=== PATIENT | male | born 1940 | race Caucasian/White ===

== ENCOUNTER 2017-01-16 01:31 | Inpatient (IN) | payer MEDICAID, OTHER ==
[2017-01-16] VITALS (13 sets, daily range): BP systolic 118–182; BP diastolic 58–74; PULSE 59–70; RESP 17–61; TEMP 98.2; Ht 160 cm; Wt 80.0 kg
[~2017-01-16] VITALS: Ht 160 cm; Wt 80.0 kg
--- NOTE | 2017-01-16 01:49 | ERA ---
ER Documentation Chief Complaint Date/Time DATE: 01/16/17 TIME: 01:47 Chief Complaint chest pain HPI The patient is a 76-year-old male, presenting to the ER because of substernal chest pain that began about 11 PM, associated with shortness of breath. He denies chest pain with exertion or vomiting or diaphoresis. Has been coughing for 1 week, denies fever, chills, neck pain, palpitation, abdominal pain, vomiting, dysuria, diarrhea, constipation. He does not smoke or drink Past medical history: History of CVA, hypertension, epilepsy, history of abdominal aortic aneurysm, diabetes mellitus, BPH, CAD, dyslipidemia Past surgical history: Aortic valve replacement, CABG 3 years ago, pacemaker ROS All systems reviewed and are negative except as per history of present illness. Medications Home Meds Reported Medications Warfarin Sodium* (Coumadin*) 5 Mg Tablet, 5 MG PO DAILY, TAB TAKE 1 TAB (5mg) PO MON/FRI AND TAKE 1.5mg TABS PO (7.5mg) ALL OTHER DAYS 01/16/17 Tamsulosin Hcl* (Tamsulosin Hcl*) 0.4 Mg Cap.er.24h, 0.4 MG PO DAILY, CAP 01/16/17 Sennosides* (Senna Lax*) 8.6 Mg Tablet, 8.6 TAB PO QHS, TAB 01/16/17 Polyethylene Glycol* (Polyethylene Glycol*) 17 Gm Powd.pack, 17 GM PO QAM for CONSTIPATION, #30 PACKET 01/16/17 Oxybutynin Chloride* (Ditropan*) 5 Mg Tab, 5 MG PO TID, TAB 01/16/17 Metformin Hcl* (Metformin Hcl*) 500 Mg Tablet, 500 MG PO WITH BREAKFAST DINNE, # 30 TAB 01/16/17 Glucosamine Hcl (Glucosamine Hcl) 1,500 Mg Tablet, 1500 MG PO TID, TAB 01/16/17 Gabapentin* (Gabapentin*) 300 Mg Capsule, 300 MG PO TID, #90 CAP 01/16/17 Finasteride* (Finasteride*) 5 Mg Tablet, 5 MG PO DAILY, TAB 01/16/17 Docusate Sodium* (Doc-Q-Lace*) 100 Mg Capsule, 100 MG PO BID Y for CONSTIPATION , CAP 01/16/17 Cilostazol* (Cilostazol*) 100 Mg Tablet, 100 MG PO BID, TAB 01/16/17 Atorvastatin* (Atorvastatin*) 80 Mg Tablet, 80 MG PO QHS, #30 TAB 01/16/17 Aspirin* (Aspirin* Chew) 81 Mg Tab.chew, 81 MG PO DAILY, TAB.CHEW 01/16/17 Gentamicin Sulfate* (Gentafair* Ophth) 0.3% - 5 Ml Drops, 1 DROP BOTH EYES Q4, EA 01/16/17 Ketorolac Tromethamine (Acular) 5 Ml Drops, 5 ML BOTH EYES, BOTTLE 01/16/17 Allergies Allergies: Coded Allergies: Penicillins (Unverified Allergy, Unknown, 01/16/17) PMhx/Soc Anesthesia Reaction: No Hx Neurological Disorder: Yes (SEIZURE) Hx Respiratory Disorders: No Hx Cardiac Disorders: Yes (HTN, ABDOMINAL AORTIC ANEURYSM) Hx Psychiatric Problems: No Hx Miscellaneous Medical Probl: Yes (Recent stroke, HTN, Abdominal aortic aneurysm) Hx Alcohol Use: No Hx Substance Use: No Hx Tobacco Use: No Physical Exam Vitals Vital Signs Date Time Temp Pulse Resp B/P Pulse Ox O2 Delivery O2 Flow Rate FiO2 01/16/17 03:26 80 18 121/57 98 Room Air 01/16/17 01:45 98.2 68 18 148/75 98 01/16/17 01:34 98.2 80 18 148/75 98 Physical Exam Const: No acute distress. Head: Atraumatic. Eyes: Normal Conjunctiva. ENT: Normal External Ears, Nose and Mouth. Neck: Full range of motion. No meningismus. Resp: Clear to auscultation bilaterally. Cardio: Regular rate and rhythm. Abd: Soft, non distended, normal bowel sounds, non tender. Skin: No petechiae or rashes. Back: No midline or flank tenderness. Ext: No cyanosis, or edema. Neur: Awake and alert. No focal deficit Psych: Normal Mood and Affect. Result Diagram: 01/16/1720401/16/17 020 Results 24 hrs Laboratory Tests Test 01/16/17 02:05 White Blood Count 10.110^3/ul Red Blood Count 3.8110^6/ul Hemoglobin 11.3g/dl Hematocrit 35.9% Mean Corpuscular Volume 94.2fl Mean Corpuscular Hemoglobin 29.7pg Mean Corpuscular Hemoglobin Concent 31.5g/dl Red Cell Distribution Width 14.2% Platelet Count 45901^3/UL Mean Platelet Volume 10.0fl Neutrophils % 65.5% Lymphocytes % 20.4% Monocytes % 8.1% Eosinophils % 5.3% Basophils % 0.3% Nucleated Red Blood Cells % 0.0/100WBC Neutrophils # 6.610^3/ul Lymphocytes # 2.110^3/ul Monocytes # 0.810^3/ul Eosinophils # 0.510^3/ul Basophils # 0.010^3/ul Nucleated Red Blood Cells # 0.010^3/ul Prothrombin Time 28.8Sec Prothrombin Time Ratio 2.3 INR International Normalized Ratio 2.67 Activated Partial Thromboplast Time 44.4Sec Sodium Level 147mmol/L Potassium Level 4.1mmol/L Chloride Level 104mmol/L Carbon Dioxide Level 27mmol/L Anion Gap 20 Blood Urea Nitrogen 23mg/dl Creatinine 0.92mg/dl Glucose Level 99mg/dl Calcium Level 9.7mg/dl Troponin I < 0.012ng/ml B-Type Natriuretic Peptide 149PG/ML Current Medications Medications (Trade) Dose Ordered Sig/Matthew Route PRN Reason Start Time Stop Time Status Last Admin Dose Admin Aspirin (Aspirin) 162 mg ONCE STAT PO 01/16/17 01:59 01/16/17 02:00 DC 01/16/17 02:18 Nitroglycerin (Nitroglycerin 2% Oint) 1 inch ONCE STAT TD 01/16/17 01:59 01/16/17 02:00 DC 01/16/17 02:18 Procedures/MDM EKG: Read by emergency physician Rate/Rhythm: Pacer at 62 beats/min No further attempt to interpret the EKG MEDICAL MAKING DECISION: The patient is a 76-year-old male, with multiple cardiac risk factors, is presenting with acute chest pain that is concerning for ACS. He was treated with aspirin 160 mg p.o. and 1 inch of nitroglycerin ointment to the chest wall with good response The differential diagnoses considered include but are not limited to acute coronary syndrome, acute myocardial infarction, pericarditis, pulmonary embolism , aortic dissection, pneumonia, pleural effusion, pneumothorax, GERD, chest wall pain. Departure Diagnosis: Primary Impression: Chest pain Additional Impression: Anemia Condition: Stable Comments I discussed the findings with the patient. I discussed the patient with the on- call hospitalist Dr. Mario at 3:30 AM who was made aware of the lab, the treatment, the patient condition. The patient is admitted to telemetry BASILIA PAYNE MD Jan 16, 2017 01:49
[2017-01-16] MEDS ORDERED: ASPIRIN 81 MG TAB PO STA (01:59)
[2017-01-16] MEDS ORDERED: NITROGLYCERIN 2% 1 GM OINT PKT TD STA (01:59)
[2017-01-16] MEDS ORDERED: POLY17PO3 PO (02:46)
[2017-01-16] MEDS ORDERED: KTR.5OP5 BOTH EYES (02:46)
[2017-01-16] MEDS ORDERED: ASPI81TA3 PO (02:46)
[2017-01-16] MEDS ORDERED: WARF5TAB72 PO (02:46)
[2017-01-16] MEDS ORDERED: METF500T4 PO (02:46)
[2017-01-16] MEDS ORDERED: GLUC15002 PO (02:46)
[2017-01-16] MEDS ORDERED: GABA300C16 PO (02:46)
[2017-01-16] MEDS ORDERED: TAMS0.4C2 PO (02:46)
[2017-01-16] MEDS ORDERED: DOCU100C26 PO (02:46)
[2017-01-16] MEDS ORDERED: ATOR80TA75 PO (02:46)
[2017-01-16] MEDS ORDERED: CILO100T PO (02:46)
[2017-01-16] MEDS ORDERED: FINA5TAB4 PO (02:46)
[2017-01-16] MEDS ORDERED: SENN-53 PO (02:46)
[2017-01-16] MEDS ORDERED: GENT5DRO28 BOTH EYES (02:46)
[2017-01-16] MEDS ORDERED: OXYB5TAB7 PO (02:46)
[2017-01-16 02:56] LABS: BASOPHILS % 0.3 % (0.0-2.0); EOSINOPHILS # 0.5 10^3/ul (0.0-0.5); EOSINOPHILS % 5.3 % (0.0-7.0); HEMATOCRIT 35.9 % (42.0-52.0); HEMOGLOBIN 11.3 g/dl (14.0-18.0); LYMPHOCYTES # 2.1 10^3/ul (0.8-2.9); LYMPHOCYTES % 20.4 % (15.0-51.0); MEAN CORPUSCULAR HEMOGLOBIN 29.7 pg (29.0-33.0); MEAN CORPUSCULAR HGB CONC 31.5 g/dl (32.0-37.0); MEAN CORPUSCULAR VOLUME 94.2 fl (82.0-101.0); MONOCYTE # 0.8 10^3/ul (0.3-0.9); MONOCYTES % 8.1 % (0.0-11.0); NEUTROPHIL # 6.6 10^3/ul (1.6-7.5); NEUTROPHILS % 65.5 % (39.0-77.0); PLATELET COUNT 235 10^3/UL (140-415); RED BLOOD COUNT 3.81 10^6/ul (4.70-6.10); RED CELL DISTRIBUTION WIDTH 14.2 % (11.5-14.5); WHITE BLOOD COUNT 10.1 10^3/ul (4.8-10.8)
[2017-01-16 03:06] LABS: INR 2.67; PROTIME 28.8 Sec (12.2-14.2); PT RATIO 2.3
[2017-01-16 03:07] LABS: PARTIAL THROMBOPLASTIN TIME 44.4 Sec (25.0-35.0)
[2017-01-16 03:11] LABS: ANION GAP 20 (8-16); BLOOD UREA NITROGEN 23 mg/dl (7-20); CALCIUM 9.7 mg/dl (8.4-10.2); CARBON DIOXIDE 27 mmol/L (21-31); CHLORIDE 104 mmol/L (97-110); CREATININE 0.92 mg/dl (0.61-1.24); GLUCOSE 99 mg/dl (70-220); POTASSIUM 4.1 mmol/L (3.5-5.1); SODIUM 147 mmol/L (135-144)
[2017-01-16 03:21] LABS: B-TYPE NATRIURETIC PEPTIDE 149 PG/ML (0-450)
[2017-01-16 03:26] LABS: TROPONIN-I < 0.012 ng/ml (0.00-0.12)
--- NOTE | 2017-01-16 03:39 | RADRPT ---
PROCEDURE: XR Chest. CLINICAL INDICATION: Chest pain TECHNIQUE: Single frontal view of the chest was obtained COMPARISON: 10/08/2015 FINDINGS: The heart is not enlarged. Calcification in the aortic arch. Prosthetic cardiac valve. Sternal wi res. Dual chamber cardiac pacemaker again seen. Small epicardial pacing lead again apparent as wel l. There is minimal prominence of the lung interstitium likely minimal chronic changes. Partial atelect asis at lung bases again apparent. ECG leads projected over the chest. There is no pleural effusion or pneumothorax. IMPRESSION: Partial atelectasis at lung bases again apparent. RPTAT: HJES .Henri Morrell MD, MD Date Time Electronically viewed and signed by .Henri Morrell MD, MD on 01/16/2017 03:38 .S/
[2017-01-16] MEDS ORDERED: DEXTROSE 50% 50 ML SYRINGE IV PRN ×2 (06:00)
[2017-01-16] MEDS ORDERED: GLUCAGON 1 MG INJ IM PRN (06:00)
[2017-01-16] MEDS ORDERED: GLUCOSE GEL 15 GRAM TUBE PO PRN ×2 (06:00)
[2017-01-16] MEDS ORDERED: GLUCOSE GEL 15 GRAM TUBE BUCCAL PRN (06:00)
[2017-01-16] MEDS ORDERED: morphine 4 MG/ML VIAL IV PRN (06:00)
[2017-01-16] MEDS: INSULIN ASPART [NOVOLOG] 3 ML PEN SC SCH ×4 (08:00→21:00)
[2017-01-16] MEDS: INSULIN GLARGINE [LANtus] 3 ML PEN SC SCH (08:41)
--- NOTE | 2017-01-16 09:38 | HP ---
Date/Time of Note Date/Time of Note DATE: 01/16/17 TIME: 09:30 Assessment/Plan Lines/Catheters IV [facility] Saline Lock Urinary Cath still in place: No Assessment/Plan Assessment/Plan 1. Chest pain, rule out ACS -EKG with no ST-T wave abnormalities. First troponin is negative -We will obtain a 2D echo and send additional troponin -We will place a cardiology consult given cardiac history 2. History of CAD with CABG -Continue cardiac medications 3. History of aortic valve replacement -Continue anticoagulation 4. History of CVA -Continue antiplatelet and statin 5. History of BPH - Continue home meds 6. History of seizure -Continue home meds -Ativan as needed 7. Diabetes -Continue insulin HPI/ROS Admit Date/Time Admit Date/Time Jan 16, 2017 at 03:38 Hx of Present Illness The patient is a 75-year-old male with a history of a CVA, cardiac valve replacement, pacemaker, hypertension, seizure and abdominal aortic aneurysm. Patient presented to the ER complaining of chest pain. He is currently somehow sleepy, but arousable, but is not providing adequate history. His who is at the bedside provided most of the story. She said he has been complaining of chest pain of and on but since yesterday he had a chest pain that lasted 3 hours. He pointed in the mid chest when describing chest pain and it is nonradiating. Denied shortness of breath, nausea, vomiting, diaphoresis. PMH/Family/Social Social History Smoking Status: Former smoker Exam/Review of Systems Vital Signs Vitals Vital Signs Date Time Temp Pulse Resp B/P Pulse Ox O2 Delivery O2 Flow Rate FiO2 01/16/17 08:00 59 01/16/17 07:29 97.4 61 121/58 98 01/16/17 04:50 Room Air Exam Constitutional: other (Initially sleepy but arousable. Appears weak.) Head: atraumatic, normocephalic Eyes: EOMI, PERRL Respiratory: clear to auscultation, normal air movement Cardiovascular: nl pulses, regular rate and rhythm Gastrointestinal: non-tender, soft Extremities: normal pulses Labs Result Diagram: 01/16/17 02001/16/17 020 Medications Medications Current Medications Diagnostic Test (Pha) (Accu-Chek) 1 02 XX ; Start 01/17/17 at 02:00 Morphine Sulfate (morphine) 2 mg Q4H PRN IV PAIN; Start 01/16/17 at 06:00 Insulin Glargine (Lantus) 10 unit DAILY@08 SC Last administered on 01/16/17t 08: 41; Admin Dose 10 UNIT; Start 01/16/17 at 08:00 Miscellaneous Information 1 ea NOTE XX ; Start 01/16/17 at 06:00 Glucose (Glutose) 15 gm Q15M PRN PO DECREASED GLUCOSE; Start 01/16/17 at 06:00 Glucose (Glutose) 22.5 gm Q15M PRN PO DECREASED GLUCOSE; Start 01/16/17 at 06:00 Dextrose (D50w Syringe) 25 ml Q15M PRN IV DECREASED GLUCOSE; Start 01/16/17 at 06:00 Dextrose (D50w Syringe) 50 ml Q15M PRN IV DECREASED GLUCOSE; Start 01/16/17 at 06:00 Glucagon (Glucagen) 1 mg Q15M PRN IM DECREASED GLUCOSE; Start 01/16/17 at 06:00 Glucose (Glutose) 15 gm Q15M PRN BUCCAL DECREASED GLUCOSE; Start 01/16/17 at 06: 00 SHAHEEN MARTINEZ MD Jan 16, 2017 09:38
[2017-01-16] MEDS ORDERED: DOCUSATE SODIUM 100 MG CAP PO PRN (10:00)
[2017-01-16] MEDS ORDERED: morphine 2 MG INJ IV PRN (11:00)
[2017-01-16] MEDS: POLYETHYLENE GLYCOL 17 GM PACKET PO SCH (11:36)
[2017-01-16] MEDS: CILOSTAZOL 100 MG TAB PO SCH ×2 (11:36→20:30)
[2017-01-16] MEDS: FINASTERIDE 5 MG TAB PO SCH (11:36)
[2017-01-16 11:38] LABS: CREATINE KINASE 55 IU/L (23-200)
[2017-01-16 11:52] LABS: CK-MB 1.52 ng/ml (0.0-2.4); TROPONIN-I < 0.012 ng/ml (0.00-0.12)
[2017-01-16] MEDS: GENTAMICIN 0.3% 5 ML OPH BOTH EYES SCH ×3 (12:39→20:31)
[2017-01-16] MEDS: OXYBUTYNIN 5 MG TAB PO SCH ×2 (12:40→20:30)
[2017-01-16] MEDS: GABAPENTIN 300 MG CAP PO SCH ×2 (12:40→20:30)
--- NOTE | 2017-01-16 13:47 | PN ---
Date/Time of Note Date/Time of Note DATE: 01/16/17 TIME: 13:42 Assessment/Plan VTE Prophylaxis VTE Prophylaxis Intervention: heparin Lines/Catheters IV C[facility]ter Type (from [facility]): Saline Lock Urinary Cath still in place: No Assessment/Plan Problems: (1) Peripheral vascular disease Status: Chronic Comment: He is status post AAA. He is normally receives his care at [facility]. His states he has seen cardiology there but he denies it. Regardless it does not appear that he has any activity of his peripheral vascular disease at this moment (2) Diabetes mellitus type 2 in obese Status: Chronic Comment: Noted he is on treatment will follow this along carefully (3) Hypertension Status: Chronic Comment: He is on medication. I am going to add in metoprolol due to the chest pain syndrome. Qualifiers: Hypertension type: essential hypertension Qualified Code: I10 - Essential hypertension (4) Dyslipidemia Status: Chronic Comment: He is on statin therapy (5) BPH (benign prostatic hyperplasia) Status: Chronic Comment: He is on medication for this and presently stable Qualifiers: Prostatic enlargement morphology: unspecified morphology Lower urinary tract symptom presence: presence of symptoms unspecified Qualified Code: N40.0 - Benign prostatic hyperplasia, presence of lower urinary tract symptoms unspecified, unspecified morphology (6) Chest pain Status: Acute Comment: He has chest pain and it is difficult to get an exact history from him. However given his multiple risk factors going to go ahead and treat this as if it is real. He is artery had an echocardiogram ordered and I have left message specifically to the construction area manager exchange Dr. LAMB to see the patient in consultation Qualifiers: Chest pain type: precordial pain Qualified Code: R07.2 - Precordial pain Subjective 24 Hr Interval Summary Free Text/Dictation Called by nursing staff secondary to patient having chest pain. Relieved with morphine. Constitutional: no complaints Respiratory: shortness of breath (When he had chest pain he did have some shortness of breath) Cardiovascular: chest pain (Resolved at this time) Gastrointestinal: no complaints Genitourinary: no complaints Exam/Review of Systems Vital Signs Vitals Vital Signs Date Time Temp Pulse Resp B/P Pulse Ox O2 Delivery O2 Flow Rate FiO2 01/16/17 12:35 60 20 132/61 94 Room Air 01/16/17 11:40 97.9 Exam Hebrew speaking male who understands Korean Constitutional: alert, oriented Neck: non-tender, supple Respiratory: clear to auscultation, normal air movement Cardiovascular: nl pulses, regular rate and rhythm Results Result Diagram: 01/16/17 0205 01/16/17 0205 Results 24 hrs Laboratory Tests Test 01/16/17 02:05 01/16/17 08:37 01/16/17 10:43 01/16/17 12:41 White Blood Count 10.1 # Red Blood Count 3.81 L Hemoglobin 11.3 L Hematocrit 35.9 L Mean Corpuscular Volume 94.2 Mean Corpuscular Hemoglobin 29.7 Mean Corpuscular Hemoglobin Concent 31.5 L Red Cell Distribution Width 14.2 Platelet Count 235 Mean Platelet Volume 10.0 # Neutrophils % 65.5 Lymphocytes % 20.4 Monocytes % 8.1 Eosinophils % 5.3 Basophils % 0.3 Nucleated Red Blood Cells % 0.0 Neutrophils # 6.6 Lymphocytes # 2.1 Monocytes # 0.8 Eosinophils # 0.5 Basophils # 0.0 Nucleated Red Blood Cells # 0.0 Prothrombin Time 28.8 H Prothrombin Time Ratio 2.3 INR International Normalized Ratio 2.67 Activated Partial Thromboplast Time 44.4 H Sodium Level 147 H Potassium Level 4.1 Chloride Level 104 Carbon Dioxide Level 27 Anion Gap 20 H Blood Urea Nitrogen 23 H Creatinine 0.92 Glucose Level 99 Calcium Level 9.7 Troponin I < 0.012 < 0.012 B-Type Natriuretic Peptide 149 Bedside Glucose 106 95 Creatine Kinase 55 Creatine Kinase Index 2.8 Creatinine Kinase MB (Mass) 1.52 Medications Medications Current Medications Diagnostic Test (Pha) (Accu-Chek) 1 ea 02 XX ; Start 01/17/17 at 02:00 Insulin Glargine (Lantus) 10 unit DAILY@08 SC Last administered on 01/16/17t 08: 41; Admin Dose 10 UNIT; Start 01/16/17 at 08:00 Miscellaneous Information 1 ea NOTE XX ; Start 01/16/17 at 06:00 Glucose (Glutose) 15 gm Q15M PRN PO DECREASED GLUCOSE; Start 01/16/17 at 06:00 Glucose (Glutose) 22.5 gm Q15M PRN PO DECREASED GLUCOSE; Start 01/16/17 at 06:00 Dextrose (D50w Syringe) 25 ml Q15M PRN IV DECREASED GLUCOSE; Start 01/16/17 at 06:00 Dextrose (D50w Syringe) 50 ml Q15M PRN IV DECREASED GLUCOSE; Start 01/16/17 at 06:00 Glucagon (Glucagen) 1 mg Q15M PRN IM DECREASED GLUCOSE; Start 01/16/17 at 06:00 Glucose (Glutose) 15 gm Q15M PRN BUCCAL DECREASED GLUCOSE; Start 01/16/17 at 06: 00 Aspirin (Aspirin) 81 mg DAILY PO ; Start 01/17/17 at 09:00 Atorvastatin Calcium (Lipitor) 80 mg QHS PO ; Start 01/16/17 at 21:00 Cilostazol (Pletal) 100 mg BID PO Last administered on 01/16/17 11:36; Admin Dose 100 MG; Start 01/16/17 at 11:00 Docusate Sodium (Colace) 100 mg BID PRN PO CONSTIPATION; Start 01/16/17 at 10:00 Finasteride (Proscar) 5 mg DAILY PO Last administered on 01/16/17 11:36; Admin Dose 5 MG; Start 01/16/17 at 11:00 Gabapentin (Neurontin) 300 mg TID PO Last administered on 01/16/17 12:40; Admin Dose 300 MG; Start 01/16/17 at 13:00 Gentamicin Sulfate (Gentamicin 0.3% Oph Drop) 1 drop Q4 BOTH EYES Last administered on 01/16/17 12:39; Admin Dose 1 DROP; Start 01/16/17 at 13:00 Oxybutynin Chloride (Ditropan) 5 mg TID PO ; Start 01/16/17 at 13:00 Polyethylene Glycol (Miralax) 17 gm QAM PO Last administered on 01/16/17 11:36 ; Admin Dose 17 GM; Start 01/16/17 at 10:00 Senna (Senokot) 8.6 tab QHS PO ; Start 01/16/17 at 21:00 Tamsulosin HCl (Flomax) 0.4 mg DAILY@21 PO ; Start 01/16/17 at 21:00 Warfarin Sodium (Coumadin) 5 mg DAILY@17 PO ; Start 01/16/17 at 17:00 Morphine Sulfate (morphine) 2 mg Q4H PRN IV PAIN Last administered on 01/16/17 12:36; Admin Dose 2 MG; Start 01/16/17 at 11:00 ANTOINE TALAVERA MD Jan 16, 2017 13:47
[2017-01-16] MEDS: METOPROLOL (XL) 25 MG TAB PO SCH ×2 (14:16→21:00)
[2017-01-16 14:51] LABS: CREATINE KINASE 63 IU/L (23-200)
[2017-01-16 15:16] LABS: TROPONIN-I < 0.012 ng/ml (0.00-0.12)
[2017-01-16] MEDS ORDERED: WARFARIN 5 MG TAB PO SCH (17:00)
--- NOTE | 2017-01-16 20:01 | RADRPT ---
Echocardiogram Report Patient Name: MONSERRAT JORDAN Gender: Male Date: 1940 Study Date: 16-Jan-2017 [employer]: JIGNA Location: I Ref. Physician: SHAHEEN MARTINEZ Quality: Technically Difficult Study Procedures: Transthoracic echocardiogram with 2D, M-Mode, and Doppler examination. Indications: Chest Pain. 2D/M Mode Doppler Measurement Value Normal Ranges Measurement Value Normal Ranges AoR Diam MM 2.8 cm KAREN Vmax 1.2 cm2 LVIDd 2D 3.7 3.5 - 5.6 cm KAREN VTI 1.2 cm2 LVIDs 2D 2.7 2.1 - 4.1 cm AV Mean Tashi 1.4 m/sec LVPWd 2D 1.2 0.6 - 1.1 cm AV Mean PG 9.3 mmHg IVSd 2D 1.2 0.6 - 1.1 cm AV Peak Tashi 2.2 m/sec EDV 2D 58.2 cm3 AV Peak PG 18.9 mmHg ESV 2D 18.9 cm3 AV VTI 44.8 cm LA Dimen 2D 3.9 2.3 - 4.0 cm LVOT Mean Tashi 0.6 m/sec LVOT Diam 2.0 cm LVOT Mean PG 1.4 mmHg LVOT Peak Tashi 0.8 m/sec LVOT Peak PG 2.6 mmHg LVOT VTI 21.3 cm MV E Peak Tashi 0.9 m/sec MV A Peak Tashi 1.2 m/sec MV E/A 0.8 MV Decel Time 235 msec MV Decel [place] 4 MV E/A 0.8 TR Peak Tashi 2.6 m/sec TR Peak PG 27.8 mmHg PV Peak Tashi 1.0 m/sec PV Peak PG 4.0 mmHg RVSP 30.8 mmHg Findings Left Ventricle: Overall, normal left ventricular systolic function. Not all segments visualized. Normal left ventricular cavity size. Mild concentric left ventricular hypertrophy. Ejection fraction is visually estimated at 55 %. Tissue Doppler/Mitral Doppler indices are consistent with impaired relaxation (Stage I diastolic dysfunction). E/E`=9. Right Ventricle: Normal right ventricular size. Left Atrium: The left atrium is normal in size. Right Atrium: The right atrium is normal in size. Atrial Septum: Normal atrial septum. Mitral Valve: Mild mitral leaflet calcification. Mild mitral annular calcification. Mild mitral valve regurgitation. Aortic Valve: Aortic Valve Bio Prosthesis. Gradients normal for valve type and size. Aortic valve Max velocity 2.20 m/sec. Max PG 19.00 mmHg. Mean PG 9.00 mmHg. Aortic valve area 1.50 cm2. Trace aortic valve regurgitation. Tricuspid Valve: Normal appearance of the tricuspid valve. Estimated peak PA systolic pressure 31 mmHg. There is mild tricuspid regurgitation. Pulmonic Valve: Normal pulmonic valve appearance. There is trace pulmonic regurgitation. Pericardium: Normal pericardium with no significant pericardial effusion. Aorta: Normal aortic root. IVC: The IVC is not well visualized. Pulmonary Artery: Normal pulmonary artery size. Conclusions 1.The left ventricle is normal in size and systolic function. 2.Estimated left ventricular ejection fraction of 55%. 3.Mild concentric left ventricular hypertrophy. Grade 1 diastolic dysfunction. 4.Aortic valve bioprosthesis with normal function. Electronically Signed By: Aubrey Lopez 16-Jan-2017 20:00:18 -0700 Patient Name: MONSERRAT JORDAN Study Date: 16-Jan-2017 [id number]
[2017-01-16] MEDS ORDERED: TAMSULOSIN (SR) 0.4 MG CAP PO SCH (21:00)
[2017-01-16] MEDS ORDERED: SENNA TAB PO SCH (21:00)
[2017-01-16] MEDS ORDERED: ATORVASTATIN 80 MG TAB PO SCH (21:00)
--- NOTE | 2017-01-16 21:07 | CONS ---
Date/Time of Note Date/Time of Note DATE: 01/16/17 TIME: 20:52 Assessment/Plan Assessment/Plan Chief Complaint/Hosp Course Assessment: Chest pain - ruled out for myocardial infarction Coronary artery disease, status post CABG (2009, ) Bioprosthetic aortic valve replacement (2013) - normal function on echocardiogram Dual-chamber permanent pacemaker (Medtronic) - appears to have normal function on EKG and telemetry Hypertension Dyslipidemia Diabetes mellitus Reported abdominal aortic aneurysm - details unknown History of stroke History of seizure Recommendations: -echocardiogram showed normal LVEF 55%, mild LVH with grade 1 diastolic dysfunction, aortic valve bioprosthesis with normal function -reported normal cardiac stress test at [facility] six months ago , will not repeat at this time -no additional cardiac work up at this time, outpatient cardiology follow up at [facility] -continue aspirin 81mg daily -continue atorvastatin 80mg daily -on warfarin for unclear indication, defer to outpatient providers Problems: Consultation Date/Type/Reason Admit Date/Time Jan 16, 2017 at 03:38 Type of Consultation: Cardiology Reason for Consultation chest pain Hx of Present Illness The patient is a 76 year-old male who presented to the emergency department with chest pain. He is unable to characterize the pain, but reports onset at approximately 11pm while he was in bed. The pain lasted all night into the morning, but has now resolved. His EKG showed AV sequential pacing. His troponins have been negative x 3. He has a history of CABG (2009 in [place]) and bioprosthetic AVR (2013). His chief growth officer and other providers are at [facility], and his reports that he had a normal cardiac stress test there six months ago. 14 point review of systems negative other than per HPI. Past Medical History Coronary artery disease, status post CABG (2009, [place]) Bioprosthetic aortic valve replacement (2013) Dual-chamber permanent pacemaker (Medtronic) Hypertension Dyslipidemia Diabetes mellitus Abdominal aortic aneurysm History of stroke History of seizure Past Surgical History Past Surgical Hx: coronary bypass surgery, other (aortic valve replacement) Family History Significant Family History: no pertinent family hx Social History Smoking Status: Former smoker Exam/Review of Systems Vital Signs Vitals Vital Signs Date Time Temp Pulse Resp B/P Pulse Ox O2 Delivery O2 Flow Rate FiO2 01/16/17 20:21 62 01/16/17 16:27 97.9 17 131/62 94 01/16/17 12:35 Room Air Exam Constitutional: alert, well developed Psych: nl mood/affect, no complaints Head: atraumatic, normocephalic Eyes: nl conjunctiva, nl lids ENMT: nl external ears & nose, nl nasal mucosa & septum Neck: non-tender, supple, No jvd Respiratory: clear to auscultation, normal air movement Cardiovascular: regular rate and rhythm, systolic murmur Gastrointestinal: non-tender, soft Musculoskeletal: nl extremities to inspection Extremities: No clubbing, No cyanosis, No edema Neurological: nl mental status, nl speech Skin: nl turgor Results Result Diagram: 01/16/17 02001/16/17 020 Results 24 hrs Laboratory Tests Test 01/16/17 02:05 01/16/17 08:37 01/16/17 10:43 01/16/17 12:41 White Blood Count 10.1 # Red Blood Count 3.81 L Hemoglobin 11.3 L Hematocrit 35.9 L Mean Corpuscular Volume 94.2 Mean Corpuscular Hemoglobin 29.7 Mean Corpuscular Hemoglobin Concent 31.5 L Red Cell Distribution Width 14.2 Platelet Count 235 Mean Platelet Volume 10.0 # Neutrophils % 65.5 Lymphocytes % 20.4 Monocytes % 8.1 Eosinophils % 5.3 Basophils % 0.3 Nucleated Red Blood Cells % 0.0 Neutrophils # 6.6 Lymphocytes # 2.1 Monocytes # 0.8 Eosinophils # 0.5 Basophils # 0.0 Nucleated Red Blood Cells # 0.0 Prothrombin Time 28.8 H Prothrombin Time Ratio 2.3 INR International Normalized Ratio 2.67 Activated Partial Thromboplast Time 44.4 H Sodium Level 147 H Potassium Level 4.1 Chloride Level 104 Carbon Dioxide Level 27 Anion Gap 20 H Blood Urea Nitrogen 23 H Creatinine 0.92 Glucose Level 99 Calcium Level 9.7 Troponin I < 0.012 < 0.012 B-Type Natriuretic Peptide 149 Bedside Glucose 106 95 Creatine Kinase 55 Creatine Kinase Index 2.8 Creatinine Kinase MB (Mass) 1.52 Test 01/16/17 13:50 01/16/17 17:14 Creatine Kinase 63 Creatine Kinase Index 2.4 Creatinine Kinase MB (Mass) 1.50 Troponin I < 0.012 Bedside Glucose 98 Medications Medications Current Medications Diagnostic Test (Pha) (Accu-Chek) 1 ea 02 XX ; Start 01/17/17 at 02:00 Insulin Glargine (Lantus) 10 unit DAILY@08 SC Last administered on 01/16/17 08: 41; Admin Dose 10 UNIT; Start 01/16/17 at 08:00 Miscellaneous Information 1 ea NOTE XX ; Start 01/16/17 at 06:00 Glucose (Glutose) 15 gm Q15M PRN PO DECREASED GLUCOSE; Start 01/16/17 at 06:00 Glucose (Glutose) 22.5 gm Q15M PRN PO DECREASED GLUCOSE; Start 01/16/17 at 06:00 Dextrose (D50w Syringe) 25 ml Q15M PRN IV DECREASED GLUCOSE; Start 01/16/17 at 06:00 Dextrose (D50w Syringe) 50 ml Q15M PRN IV DECREASED GLUCOSE; Start 01/16/17 at 06:00 Glucagon (Glucagen) 1 mg Q15M PRN IM DECREASED GLUCOSE; Start 01/16/17 at 06:00 Glucose (Glutose) 15 gm Q15M PRN BUCCAL DECREASED GLUCOSE; Start 01/16/17 at 06: 00 Aspirin (Aspirin) 81 mg DAILY PO ; Start 01/17/17 at 09:00 Atorvastatin Calcium (Lipitor) 80 mg QHS PO Last administered on 01/16/17 20:30 ; Admin Dose 80 MG; Start 01/16/17 at 21:00 Cilostazol (Pletal) 100 mg BID PO Last administered on 01/16/17 20:30; Admin Dose 100 MG; Start 01/16/17 at 11:00 Docusate Sodium (Colace) 100 mg BID PRN PO CONSTIPATION; Start 01/16/17 at 10:00 Finasteride (Proscar) 5 mg DAILY PO Last administered on 01/16/17 11:36; Admin Dose 5 MG; Start 01/16/17 at 11:00 Gabapentin (Neurontin) 300 mg TID PO Last administered on 01/16/17 20:30; Admin Dose 300 MG; Start 01/16/17 at 13:00 Gentamicin Sulfate (Gentamicin 0.3% Oph Drop) 1 drop Q4 BOTH EYES Last administered on 01/16/17 20:31; Admin Dose 1 DROP; Start 01/16/17 at 13:00 Oxybutynin Chloride (Ditropan) 5 mg TID PO Last administered on 01/16/17 20:30 ; Admin Dose 5 MG; Start 01/16/17 at 13:00 Polyethylene Glycol (Miralax) 17 gm QAM PO Last administered on 01/16/17 11:36 ; Admin Dose 17 GM; Start 01/16/17 at 10:00 Senna (Senokot) 8.6 tab QHS PO Last administered on 01/16/17 20:30; Admin Dose 8.6 TAB; Start 01/16/17 at 21:00 Tamsulosin HCl (Flomax) 0.4 mg DAILY@21 PO Last administered on 01/16/17 20:31 ; Admin Dose 0.4 MG; Start 01/16/17 at 21:00 Warfarin Sodium (Coumadin) 5 mg DAILY@17 PO Last administered on 01/16/17 17:16 ; Admin Dose 5 MG; Start 01/16/17 at 17:00 Morphine Sulfate (morphine) 2 mg Q4H PRN IV PAIN Last administered on 01/16/17 12:36; Admin Dose 2 MG; Start 01/16/17 at 11:00 Metoprolol Succinate (Toprol Xl) 25 mg BID PO Last administered on 01/16/17 14: 16; Admin Dose 25 MG; Start 01/16/17 at 14:00 ESTELLA LAMB MD Jan 16, 2017 21:03
[2017-01-17] VITALS (8 sets, daily range): BP systolic 102–148; BP diastolic 55–67; PULSE 59–61; RESP 17–19
[2017-01-17] MEDS: GENTAMICIN 0.3% 5 ML OPH BOTH EYES SCH ×4 (01:00→12:54)
[2017-01-17] MEDS ORDERED: ACCU-CHEK XX SCH ×2 (02:00)
[2017-01-17] MEDS: INSULIN ASPART [NOVOLOG] 3 ML PEN SC SCH ×2 (08:00→12:00)
[2017-01-17] MEDS: INSULIN GLARGINE [LANtus] 3 ML PEN SC SCH (08:17)
[2017-01-17] MEDS: FINASTERIDE 5 MG TAB PO SCH (08:18)
[2017-01-17] MEDS: GABAPENTIN 300 MG CAP PO SCH ×2 (08:18→12:54)
[2017-01-17] MEDS: METOPROLOL (XL) 25 MG TAB PO SCH (08:18)
[2017-01-17] MEDS: POLYETHYLENE GLYCOL 17 GM PACKET PO SCH ×2 (08:18→08:23)
[2017-01-17] MEDS: CILOSTAZOL 100 MG TAB PO SCH (08:18)
[2017-01-17] MEDS: OXYBUTYNIN 5 MG TAB PO SCH ×2 (08:18→12:54)
[2017-01-17] MEDS ORDERED: ASPIRIN 81 MG TAB PO SCH (09:00)
--- NOTE | 2017-01-17 11:22 | CONS ---
Date/Time of Note Date/Time of Note DATE: 01/17/17 TIME: 11:14 Assessment/Plan Assessment/Plan Additional Assessment/Plan Coronary heart disease Status post coronary artery bypass graft Status post valvuloplasty Recent history of chest pain, noncardiac Hypertension Hyperlipidemia Currently does not fit criteria for palliative or hospice care, but I appreciate the opportunity to evaluate him early. Family members were not concerned with my questioning, I did not approach the issue of palliation or hospice care at this time. Consultation Date/Type/Reason Admit Date/Time Jan 16, 2017 at 03:38 Date of Consultation: Jan 17, 2017 Hx of Present Illness This is a 76-year-old gentleman who has a history of coronary heart disease status post coronary artery bypass graft, valvuloplasty who is admitted at this time with chest pain. Please refer to detailed history by Dr. Timothy Mario on presentation. I am asked to evaluate patient's clinical history for consideration of palliation. Patient appears to be very viable on examination is not extremely symptomatic and based on my history obtained from him this was more pleuritic or gastrointestinal type pain rather than angina. This gentleman does not have symptoms out of control, [place] heart classification 2 , I do not have a EF available to evaluate and he is not on maximum treatment for end-stage heart failure. Comorbid medical problems include hyperlipidemia and hypertension his primary care physicians are at all at [facility] scheduled appointment is next week. He is asymptomatic at this time resolution of his chest pain and without dyspnea. Psychological: nl mood/affect, no complaints Past Surgical History Past Surgical Hx: coronary bypass surgery, other (aortic valve replacement) Social History Smoking Status: Former smoker Exam/Review of Systems Vital Signs Vitals Vital Signs Date Time Temp Pulse Resp B/P Pulse Ox O2 Delivery O2 Flow Rate FiO2 01/17/17 08:03 97.8 65 17 102/55 95 01/16/17 12:35 Room Air Intake and Output 01/16/17 01/16/17 01/17/17 15:00 23:00 07:00 Intake Total 400 ml 1200 ml 120 ml Output Total 400 ml 900 ml Balance 0 ml 300 ml 120 ml Exam Constitutional: alert, oriented, well developed Psych: nl mood/affect, no complaints Neurological: DIRECTOR OF STRATEGIC INITIATIVES II-XII intact, nl mental status, nl speech, nl strength Results Result Diagram: 01/16/1720401/16/17 0205 Results 24 hrs Laboratory Tests Test 01/16/17 12:41 01/16/17 13:50 01/16/17 17:14 01/16/17 20:48 Bedside Glucose 95 98 84 Creatine Kinase 63 Creatine Kinase Index 2.4 Creatinine Kinase MB (Mass) 1.50 Troponin I < 0.012 Test 01/17/17 08:00 Bedside Glucose 91 Medications Medications Current Medications Diagnostic Test (Pha) (Accu-Chek) 1 ea 02 XX ; Start 01/17/17 at 02:00 Insulin Glargine (Lantus) 10 unit DAILY@08 SC Last administered on 01/17/17 08: 17; Admin Dose 10 UNIT; Start 01/16/17 at 08:00 Miscellaneous Information 1 ea NOTE XX ; Start 01/16/17 at 06:00 Glucose (Glutose) 15 gm Q15M PRN PO DECREASED GLUCOSE; Start 01/16/17 at 06:00 Glucose (Glutose) 22.5 gm Q15M PRN PO DECREASED GLUCOSE; Start 01/16/17 at 06:00 Dextrose (D50w Syringe) 25 ml Q15M PRN IV DECREASED GLUCOSE; Start 01/16/17 at 06:00 Dextrose (D50w Syringe) 50 ml Q15M PRN IV DECREASED GLUCOSE; Start 01/16/17 at 06:00 Glucagon (Glucagen) 1 mg Q15M PRN IM DECREASED GLUCOSE; Start 01/16/17 at 06:00 Glucose (Glutose) 15 gm Q15M PRN BUCCAL DECREASED GLUCOSE; Start 01/16/17 at 06: 00 Aspirin (Aspirin) 81 mg DAILY PO Last administered on 01/17/17 08:18; Admin Dose 81 MG; Start 01/17/17 at 09:00 Atorvastatin Calcium (Lipitor) 80 mg QHS PO Last administered on 01/16/17 20:30 ; Admin Dose 80 MG; Start 01/16/17 at 21:00 Cilostazol (Pletal) 100 mg BID PO Last administered on 01/17/17 08:18; Admin Dose 100 MG; Start 01/16/17 at 11:00 Docusate Sodium (Colace) 100 mg BID PRN PO CONSTIPATION; Start 01/16/17 at 10:00 Finasteride (Proscar) 5 mg DAILY PO Last administered on 01/17/17 08:18; Admin Dose 5 MG; Start 01/16/17 at 11:00 Gabapentin (Neurontin) 300 mg TID PO Last administered on 01/17/17 08:18; Admin Dose 300 MG; Start 01/16/17 at 13:00 Gentamicin Sulfate (Gentamicin 0.3% Oph Drop) 1 drop Q4 BOTH EYES Last administered on 01/17/17 08:17; Admin Dose 1 DROP; Start 01/16/17 at 13:00 Oxybutynin Chloride (Ditropan) 5 mg TID PO Last administered on 01/17/17 08:18 ; Admin Dose 5 MG; Start 01/16/17 at 13:00 Polyethylene Glycol (Miralax) 17 gm QAM PO Last administered on 01/16/17 11:36 ; Admin Dose 17 GM; Start 01/16/17 at 10:00 Senna (Senokot) 8.6 tab QHS PO Last administered on 01/16/17 20:30; Admin Dose 8.6 TAB; Start 01/16/17 at 21:00 Tamsulosin HCl (Flomax) 0.4 mg DAILY@21 PO Last administered on 01/16/17 20:31 ; Admin Dose 0.4 MG; Start 01/16/17 at 21:00 Warfarin Sodium (Coumadin) 5 mg DAILY@17 PO Last administered on 01/16/17 17:16 ; Admin Dose 5 MG; Start 01/16/17 at 17:00 Morphine Sulfate (morphine) 2 mg Q4H PRN IV PAIN Last administered on 01/16/17 12:36; Admin Dose 2 MG; Start 01/16/17 at 11:00 Metoprolol Succinate (Toprol Xl) 25 mg BID PO Last administered on 01/16/17 14: 16; Admin Dose 25 MG; Start 01/16/17 at 14:00 MARI MCKINNEY Jan 17, 2017 11:21
--- NOTE | 2017-01-17 13:48 | PDOCDIS ---
Discharge Instructions DIAGNOSIS Discharge Diagnosis Chest pain syndrome; status post bioprosthetic aortic valve replacement; dual- chamber pacer; BPH; peripheral vascular disease; diabetes mellitus type 2; hypertension; hyperlipidemia CONDITION Patient Condition: Good HOME CARE INSTRUCTIONS: Special Diet: Carbohydrate controlled ACTIVITY: Activity Restrictions: No Restrictions Do not operate Machinery Do not operate Power Tool FOLLOW UP/APPOINTMENTS Follow-up Plan Cardiology clinic at [facility], in 2 weeks SCHOOL/WORK RELEASE May return to School/Work with: No Restrictions ANTOINE TALAVERA MD Jan 17, 2017 13:48
[2017-01-17] MEDS ORDERED: METO25TA7 PO (13:50)
--- NOTE | 2017-01-17 13:52 | DS ---
Date/Time of Note Date/Time of Note DATE: 01/17/17 TIME: 13:50 Discharge Summary Admission/Discharge Info Admit Date/Time Jan 16, 2017 at 03:38 Discharge Date/Time 01/17/2017 Discharge Diagnosis Chest pain syndrome; status post bioprosthetic aortic valve replacement; dual- chamber pacer; BPH; peripheral vascular disease; diabetes mellitus type 2; hypertension; hyperlipidemia Patient Condition: Good Consults Cardiology. Procedures Rule out [facility] protocol. Echocardiogram. Hx of Present Illness The patient is a 75-year-old male with a history of a CVA, cardiac valve replacement, pacemaker, hypertension, seizure and abdominal aortic aneurysm. Patient presented to the ER complaining of chest pain. He is currently somehow sleepy, but arousable, but is not providing adequate history. His who is at the bedside provided most of the story. She said he has been complaining of chest pain of and on but since yesterday he had a chest pain that lasted 3 hours. He pointed in the mid chest when describing chest pain and it is nonradiating. Denied shortness of breath, nausea, vomiting, diaphoresis. Hospital Course This is a 76-year-old gentleman who has a history of coronary heart disease status post coronary artery bypass graft, valvuloplasty who is admitted at this time with chest pain. Please refer to detailed history by Dr. Timothy Mario on presentation. I am asked to evaluate patient's clinical history for consideration of palliation. Patient appears to be very viable on examination is not extremely symptomatic and based on my history obtained from him this was more pleuritic or gastrointestinal type pain rather than angina. This gentleman does not have symptoms out of control, [place] heart classification 2 , I do not have a EF available to evaluate and he is not on maximum treatment for end-stage heart failure. Comorbid medical problems include hyperlipidemia and hypertension his primary care physicians are at all at [facility] scheduled appointment is next week. He is asymptomatic at this time resolution of his chest pain and without dyspnea. Charming 76-year-old Syriac gentleman who speaks Liberian. He has been entirely asymptomatic since he was admitted. He has ruled out for cardiac event and is stable. We have added beta-blockade to his regimen as a precaution. He is now able be discharged home to be followed up as an outpatient at his regular health associate office at [facility]. His rehabilitation potential is fair. Home Meds Active Scripts Metoprolol Succinate* (Toprol XL*) 25 Mg Tab.sr.24h, 25 MG PO BID for 30 Days Prov:ANTOINE TALAVERA MD 01/17/17 Reported Medications Warfarin Sodium* (Coumadin*) 5 Mg Tablet, 5 MG PO DAILY, TAB TAKE 1 TAB (5mg) PO MON/FRI AND TAKE 1.5mg TABS PO (7.5mg) ALL OTHER DAYS 01/16/17 Tamsulosin Hcl* (Tamsulosin Hcl*) 0.4 Mg Cap.er.24h, 0.4 MG PO DAILY, CAP 01/16/17 Sennosides* (Senna Lax*) 8.6 Mg Tablet, 8.6 TAB PO QHS, TAB 01/16/17 Polyethylene Glycol* (Polyethylene Glycol*) 17 Gm Powd.pack, 17 GM PO QAM for CONSTIPATION, #30 PACKET 01/16/17 Oxybutynin Chloride* (Ditropan*) 5 Mg Tab, 5 MG PO TID, TAB 01/16/17 Metformin Hcl* (Metformin Hcl*) 500 Mg Tablet, 500 MG PO WITH BREAKFAST DINNE, # 30 TAB 01/16/17 Glucosamine Hcl (Glucosamine Hcl) 1,500 Mg Tablet, 1500 MG PO TID, TAB 01/16/17 Gabapentin* (Gabapentin*) 300 Mg Capsule, 300 MG PO TID, #90 CAP 01/16/17 Finasteride* (Finasteride*) 5 Mg Tablet, 5 MG PO DAILY, TAB 01/16/17 Docusate Sodium* (Doc-Q-Lace*) 100 Mg Capsule, 100 MG PO BID Y for CONSTIPATION , CAP 01/16/17 Cilostazol* (Cilostazol*) 100 Mg Tablet, 100 MG PO BID, TAB 01/16/17 Atorvastatin* (Atorvastatin*) 80 Mg Tablet, 80 MG PO QHS, #30 TAB 01/16/17 Aspirin* (Aspirin* Chew) 81 Mg Tab.chew, 81 MG PO DAILY, TAB.CHEW 01/16/17 Gentamicin Sulfate* (Gentafair* Ophth) 0.3% - 5 Ml Drops, 1 DROP BOTH EYES Q4, EA 01/16/17 Ketorolac Tromethamine (Acular) 5 Ml Drops, 5 ML BOTH EYES, BOTTLE 01/16/17 Primary Care Provider Not On Staff Doctor Time spent on discharge: > 30 minutes Pending Labs Laboratory Tests Test 01/16/17 17:14 01/16/17 20:48 01/17/17 08:00 01/17/17 12:16 Bedside Glucose 98mg/dL (70-220) 84mg/dL (70-220) 91mg/dL (70-220) 104mg/dL (70-220) ANTOINE TALAVERA MD Jan 17, 2017 13:52
== END 2017-01-17 16:08 | disposition home or self-care (01) | DRG 313 ==
LOC: E/R 01:31 → MS4 03:38
PROVIDERS: ADMIT Internal Medicine; ATTEND Internal Medicine
DX: R07.89 Other chest pain (principal); I25.10 Atherosclerotic heart disease of native coronary artery without angina pectoris; E11.51 Type 2 diabetes mellitus with diabetic peripheral angiopathy without gangrene; D64.9 Anemia, unspecified; I71.4 Abdominal aortic aneurysm, without rupture; I10 Essential (primary) hypertension; E78.5 Hyperlipidemia, unspecified; N40.0 Benign prostatic hyperplasia without lower urinary tract symptoms; Z95.1 Presence of aortocoronary bypass graft; Z86.69 Personal history of other diseases of the nervous system and sense organs; Z95.2 Presence of prosthetic heart valve; Z95.0 Presence of cardiac pacemaker; Z86.73 Personal history of transient ischemic attack (TIA), and cerebral infarction without residual deficits; Z79.82 Long term (current) use of aspirin
CPT/HCPCS: 36415; 71010; 80048; 82550; 82553; 82962; 83880; 84484; 85025; 85610; 85730; 87081; 93005; 93306; J1815; J2270

== ENCOUNTER → 2019-01-21 | Emergency (ER) | payer OTHER ==
[~2019-01-21] VITALS: Ht 162.6 cm; Wt 79.0 kg
[~2019-01-21] MED LIST: ACET1TAB40 PO; ASPI-903 PO; ATOR-2 PO; CILO100T PO; DOCU-221 PO; FINA5TAB4 PO; GABA300C16 PO; GENT5DRO28 BOTH EYES; GLUC15006 PO; HYDROCODONE/APAP (5/325) TAB PO ONE; KTR.5OP5 BOTH EYES; METF500T24 PO; METO-335 PO; ONDA4TAB14 PO; ONDANSETRON (ODT) 4 MG TAB ODT STA; OXYB5TAB7 PO; POLY17PO28 PO; SENN-120 PO; TAMS0.4C2 PO; WARF5TAB PO
[2019-01-21 08:32] VITALS: BP 168/73; PULSE 64; RESP 18; Ht 162.6 cm; Wt 79.0 kg
--- NOTE | 2019-01-21 11:00 | ERD ---
ER Documentation Chief Complaint Chief Complaint fell from bed has nose pain, nose bleed resolved HPI 78-year-old male presenting with nasal pain after falling out of bed earlier today. He had bloody nose but denies any loss of consciousness or vomiting. The bleeding has since stopped will be in the emergency room. He is on blood thinners. Patient's states that he is acting normal. Allergy to Cipro and penicillin. Surgical history denies. Social history denies. Medical history of aortic aneurysm with subdural bleed and other cardiac abnormalities. ROS All systems reviewed and are negative except as per history of present illness. Medications Home Meds Active Scripts Ondansetron (Ondansetron Odt) 4 Mg Tab.rapdis, 4 MG PO Q6H PRN for NAUSEA AND/OR VOMITING, #10 TAB Prov:CAMI DONALDSON PA-C 01/21/19 Acetaminophen with Codeine (Acetaminophen-Cod #3 Tablet) 1 Each Tablet, 1 TAB PO Q6H PRN for PAIN, #7 TAB Prov:CAMI DONALDSON PA-C 01/21/19 Metoprolol Succinate* (Toprol XL*) 25 Mg Tab.sr.24h, 25 MG PO BID for 30 Days Prov:ANTOINE TALAVERA MD 01/17/17 Reported Medications Warfarin Sodium* (Coumadin*) 5 Mg Tablet, 5 MG PO DAILY, TAB TAKE 1 TAB (5mg) PO MON/FRI AND TAKE 1.5mg TABS PO (7.5mg) ALL OTHER DAYS 01/16/17 Tamsulosin Hcl* (Tamsulosin Hcl*) 0.4 Mg Cap.er.24h, 0.4 MG PO DAILY, CAP 01/16/17 Sennosides* (Senna Lax*) 8.6 Mg Tablet, 8.6 TAB PO QHS, TAB 01/16/17 Polyethylene Glycol* (Polyethylene Glycol*) 17 Gm Powd.pack, 17 GM PO QAM for CONSTIPATION, #30 PACKET 01/16/17 Oxybutynin Chloride* (Ditropan*) 5 Mg Tab, 5 MG PO TID, TAB 01/16/17 Metformin Hcl* (Metformin Hcl*) 500 Mg Tablet, 500 MG PO WITH BREAKFAST DINNE, #30 TAB 01/16/17 Glucosamine Hcl (Glucosamine Hcl) 1,500 Mg Tablet, 1500 MG PO TID, TAB 01/16/17 Gabapentin* (Gabapentin*) 300 Mg Capsule, 300 MG PO TID, #90 CAP 01/16/17 Finasteride* (Finasteride*) 5 Mg Tablet, 5 MG PO DAILY, TAB 01/16/17 Docusate Sodium* (Doc-Q-Lace*) 100 Mg Capsule, 100 MG PO BID PRN for CONSTIPATION, CAP 01/16/17 Cilostazol* (Cilostazol*) 100 Mg Tablet, 100 MG PO BID, TAB 01/16/17 Atorvastatin* (Atorvastatin*) 80 Mg Tablet, 80 MG PO QHS, #30 TAB 01/16/17 Aspirin* (Aspirin* Chew) 81 Mg Tab.chew, 81 MG PO DAILY, TAB.CHEW 01/16/17 Gentamicin Sulfate* (Gentafair* Ophth) 0.3% - 5 Ml Drops, 1 DROP BOTH EYES Q4, EA 01/16/17 Ketorolac Tromethamine (Acular) 5 Ml Drops, 5 ML BOTH EYES, BOTTLE 01/16/17 Allergies Allergies: Coded Allergies: ciprofloxacin (Verified Allergy, Intermediate, rashes, 01/21/19) Penicillins (Unverified Allergy, Unknown, 01/21/19) PMhx/Soc History of Surgery: Yes (CABG, Aortic Valve replace(2012), cataract sx.) Anesthesia Reaction: No Hx Neurological Disorder: Yes (Stroke 4 yr ago) Hx Respiratory Disorders: No Hx Cardiac Disorders: Yes ( HTN, CAD,Bradycardia, AAA) Hx Psychiatric Problems: Yes (depression) Hx Miscellaneous Medical Probl: Yes (EMPHYSEMA, PVD, BPH, DM type I) Hx Alcohol Use: No Hx Substance Use: No Hx Tobacco Use: No Smoking Status: Former smoker FmHx Family History: No diabetes, No coronary disease, No other Physical Exam Vitals Vital Signs Date Temp Pulse Resp B/P (MAP) Pulse Ox O2 O2 Flow FiO2 Time Delivery Rate 01/21/19 98.1 64 18 168/73 99 08:32 (104) Physical Exam GENERAL: The patient is well-appearing, well-nourished, in no acute distress HEENT: Atraumatic. Conjunctivae are pink. Pupils equal, round, and reactive to light. There is no scleral icterus. Tympanic membranes clear bilaterally. Oropharynx clear. Dried blood noted within the nasal passages with no active bleeding. CHEST: Clear to auscultation bilaterally. There are no rales, wheezes or rhonchi. HEART: Regular rate and rhythm. No murmurs, clicks, rubs or gallops. No S3 or S4. ABDOMEN:Soft, nontender and nondistended. Good bowel sounds. No rebound or guarding. No gross peritonitis. No gross organomegaly or masses. EXTREMITIES: Equal pulses bilaterally. There is no peripheral clubbing, cyanosis or edema. No focal swelling or erythema. Full range of motion. NEUROLOGIC: Alert and oriented. Cranial nerves II through XII intact. Motor strength in all 4 extremities with 5 out of 5 strength. Sensation grossly intact. Normal speech and gait. SKIN: swelling noted to the nose with no superficial lacerations or abrasions. Results 24 hrs Current Medications Medications Dose Sig/Matthew Start Time Status Last (Trade) Ordered Route PRN Stop Time Admin Dose Reason Admin 1 tab ONCE ONCE 01/21/19 DC 01/21/19 Acetaminophen PO 09:00 08:55 / 01/21/19 09:01 Hydrocodone Bitart ([place] (5/325)) Ondansetron 4 mg ONCE STAT 01/21/19 DC 01/21/19 HCl (Zofran ODT 08:51 08:55 Odt) 01/21/19 08:53 Procedures/MDM CT BRAIN w/o Contrast IMPRESSION: No intracranial hemorrhage or skull fracture. Atrophy with white matter disease compatible with chronic small vessel ischemia. No mass or evidence of acute transcortical infarct. CT FACIAL BONES IMPRESSION: Negative CT of the facial bones with no evidence of acute traumatic injury. MDM: 78-year-old male presenting after fall. Patient does not have fracture noted on CT scan of the face and CT of the brain is within normal limits. Patient's exam is non-concerning. Patient does not have any findings of posterior epistaxis and does not have continued epistaxis on the ER. Blood is clotted appropriately and patient does not have active bleeding. I have low suspicion for intracranial hemorrhage or neuro deficit. Patient is discharged with strict ER precautions and told to follow-up with primary care within 1 to 2 days for close evaluation. All questions answered at discharge Departure Diagnosis: Primary Impression: Contusion Additional Impression: Fall Condition: Stable Patient Instructions: Contusions (Bruises), Fall, Mechanical Referrals: [facility] YOU HAVE RECEIVED A MEDICAL SCREENING EXAM AND THE RESULTS INDICATE THAT YOU DO NOT HAVE A CONDITION THAT REQUIRES URGENT TREATMENT IN THE EMERGENCY DEPARTMENT. FURTHER EVALUATION AND TREATMENT OF YOUR CONDITION CAN WAIT UNTIL YOU ARE SEEN IN YOUR DOCTORS OFFICE WITHIN THE NEXT 1-2 DAYS. IT IS YOUR RESPONSIBILITY TO MAKE AN APPOINTMENT FOR FOLOW-UP CARE. IF YOU HAVE A PRIMARY DOCTOR --you should call your primary doctor and schedule an appointment IF YOU DO NOT HAVE A PRIMARY DOCTOR YOU CAN CALL OUR PHYSICIAN REFERRAL HOTLINE AT IF YOU CAN NOT AFFORD TO SEE A PHYSICIAN YOU CAN CHOSE FROM THE FOLLOWING [facility] [address] [facility] [address] [facility] [address] [facility] [address] [facility] [address] [facility]. [address] Additional Instructions: FOLLOW UP WITH YOUR PRIMARY CARE PHYSICIAN TOMORROW.Return to this facility if you are not improving as expected. CAMI DONALDSON PA-C Jan 21, 2019 11:00
== END | disposition home or self-care (01) ==
LOC: FTE 08:29
DX: S00.33XA Contusion of nose, initial encounter (principal); I10 Essential (primary) hypertension; E10.9 Type 1 diabetes mellitus without complications; I25.10 Atherosclerotic heart disease of native coronary artery without angina pectoris; W06.XXXA Fall from bed, initial encounter; Y92.9 Unspecified place or not applicable; Z79.01 Long term (current) use of anticoagulants; Z79.82 Long term (current) use of aspirin; Z79.84 Long term (current) use of oral hypoglycemic drugs; Z86.73 Personal history of transient ischemic attack (TIA), and cerebral infarction without residual deficits; Z95.1 Presence of aortocoronary bypass graft; Z87.891 Personal history of nicotine dependence
CPT/HCPCS: 70450; 70486; Z7610